=== PATIENT | female | born 1990 | race Caucasian/White ===

== ENCOUNTER 2022-04-19 06:55 | Emergency (ER) | payer SELFPAY ==
[2022-04-19] MEDS ORDERED: diphenhydrAMINE 50 MG/ML SDV IVPUSH ONE (07:35)
[2022-04-19] MEDS ORDERED: Metoclopramide 10 MG/2 ML SDV IVPUSH ONE (07:35)
[2022-04-19] MEDS ORDERED: LORazepam 2 MG/ML SDV IVPUSH ONE (07:36)
[2022-04-19] MEDS ORDERED: Dextrose 5%-Lactated Ringers 1,000 ML IV SCH (07:45)
[2022-04-19] MEDS ORDERED: Ketorolac 30 MG/ML SDV IVPUSH SCH (07:45)
[2022-04-19 09:12] LABS: ESTIMATED GFR 125 mL/min (>60)
== END 2022-04-19 12:25 | disposition home or self-care (01) ==
LOC: JD.ED 06:55
DX: D50.0 Iron deficiency anemia secondary to blood loss (chronic) (principal); F11.23 Opioid dependence with withdrawal; F17.210 Nicotine dependence, cigarettes, uncomplicated
CPT/HCPCS: 36415; 71045; 71045-26; 80053; 80307; 81001; 82009; 82553; 83605; 83735; 83880; 84703; 85025; 85652; 86140; 96361; 96374; 96375; 99284-25; J1200; J1885; J2060; J2765; J7121